=== PATIENT | female | born 1960 | race Caucasian/White ===

== ENCOUNTER → 2018-05-25 | Outpatient (CLI) | payer BC ==
[~2018-05-25] MED LIST: ALPR-475; ESTRODIOL; LORA-446 PO; PANT20TA2 PO; PROG100S; ZOLP10TA
== END | disposition home or self-care (01) ==
LOC: CFH 11:36
PROVIDERS: ATTEND Obstetrics & Gynecology
DX: Z12.31 Encounter for screening mammogram for malignant neoplasm of breast (principal)
CPT/HCPCS: 77067

== ENCOUNTER → 2018-10-17 | Outpatient (CLI) | payer BC | END | disposition home or self-care (01) | LOC: CFH 11:01 | PROVIDERS: ATTEND Allergy & Immunology | DX: J44.9 Chronic obstructive pulmonary disease, unspecified (principal) | CPT/HCPCS: 71046 ==

== ENCOUNTER 2019-06-19 19:14 | Inpatient (IN) | payer OTHER ==
[~2019-06-19] VITALS: Ht 162.6 cm; Wt 52.1 kg
[2019-06-21 13:27] VITALS: BP 132/83
== END 2019-06-21 15:40 | disposition home or self-care (01) | DRG 641 ==
LOC: ED 22:14 → EDIP 22:40 → 4WST 23:41 → DCLOUNGE 06-21 15:27
PROVIDERS: ADMIT Internal Medicine; ATTEND Internal Medicine
DX: E87.1 Hypo-osmolality and hyponatremia (principal); F41.9 Anxiety disorder, unspecified; I10 Essential (primary) hypertension; I16.0 Hypertensive urgency; I70.1 Atherosclerosis of renal artery; J45.909 Unspecified asthma, uncomplicated; Z79.899 Other long term (current) drug therapy; Z80.1 Family history of malignant neoplasm of trachea, bronchus and lung; Z88.8 Allergy status to other drugs, medicaments and biological substances; Z87.891 Personal history of nicotine dependence; Z90.710 Acquired absence of both cervix and uterus; R79.89 Other specified abnormal findings of blood chemistry; R00.0 Tachycardia, unspecified
CPT/HCPCS: 36415; 74176; 76856; 80053; 81003; 82533; 83735; 83930; 83935; 84295; 84439; 84443; 85025; 93975; 96361; 96374; 99291; G0378; J2270; J7030

== ENCOUNTER 2020-01-15 11:30 | Emergency (ER) | payer OTHER ==
[~2020-01-15] VITALS: Ht 162.6 cm; Wt 54.0 kg
[~2020-01-15 11:30] MED LIST changes: -ALPR-475; +ALPR0.5T7; +AMLO-150 PO
--- NOTE | 2020-01-15 11:55 | NUR ---
ASSUMED CARE OF PT AT THIS TIME FROM LOBBY VIA WHEELCHAIR. PT ABLE TO STAND AND AMBUALTE IN STEADY GAIT IN ROOM. 59 Y/O ANXIOUS FEMALE PRESENTS STATING "I WOKE UP FEELING NAUSEATED, THREW UP VERY LITTLE MAYBE 3 TIMES, LIGHTHEADED NOT REALLY DIZZY, FOGGY, JUST NOT FEELING WELL, I FEEL ANXIOUS AND STRESSED WAITING FOR ALL MY IMAGING RESULTS FROM YESTERDAY, THEY DID US ON MY ABD TO CHECK ALL MY STENTS, MY STOMACH HAS JUST BEEN SORE SINCE HAVING THEM." DENIES ANY ABD PAIN, CP, PAIN, SOB, TAM, DIZZINESS, DIARRHEA, FEVER, CHILLS. CONT PULSE OX, BP, CARDIAC MONITORS IN PLACE. ST ON MONITOR. VSS. A&OX4. SPOUSE AT BEDSIDE. FALL PRECAUTIONS IN PLACE. SIDE RAILS UPX2. CALL LIGHT IN REACH. DR. BROOKS AT BEDSIDE FOR EVALUATION, AWAITING ORDER. PER PT TO BE NPO IN ER, PT VERBALIZED UNDERSTANDING. ASSESSMENT COMPLETED.
[2020-01-15] MEDS ORDERED: SODIUM CHLORIDE 0.9% 1,000ML IVBOLUS ONE (12:00)
[2020-01-15] MEDS ORDERED: LORazepam 2 MG/ML, 1ML IVPush ONE (12:00)
[2020-01-15] MEDS ORDERED: SODIUM CHLORIDE FLUSH 10ML SYR IVF ONE (12:00)
[2020-01-15] MEDS ORDERED: ONDANSETRON 2MG/ML, 2ML IVPush ONE (12:00)
--- NOTE | 2020-01-15 12:11 | NUR ---
IV PLACED, LABS DRAWN. PT MEDICATED NOTED IN [facility] PER MD ORDER FOR ANXIETY AND WITH IVF. REFUSES ZOFRAN AT THIS TIME, "I'M NOT NAUSEATED AND NOT HAVING PAIN JUST ANXIOUS." VSS. ST ON MONITOR. CALL LIGHT IN REACH. FALL PRECAUTIONS IN PLACE. SPOUSE REMAINS AT BEDSIDE
[2020-01-15] MEDS ORDERED: LORazepam 2 MG/ML, 1ML ONE (12:13)
[2020-01-15 12:32] LABS: MD YES; MEAN CORPUSCULAR HEMOGLOBIN 29.1 pg (27.0-34.8); MEAN CORPUSCULAR VOLUME 88.1 fL (80-100); MEAN PLATELET VOLUME 9.6 fL (7.4-10.4); PLATELET COUNT 341 x10^3/uL (130-400); RED BLOOD COUNT 5.07 x10^6/uL (3.82-5.3); RED CELL DISTRIBUTION WIDTH 14.9 % (9.6-15.2)
[2020-01-15] MEDS ORDERED: RIVA20TA PO (12:35)
[2020-01-15 12:38] LABS: ALANINE AMINOTRANSFERASE 25 U/L (12-78); ALBUMIN 3.9 g/dL (3.4-5.0); ANION GAP 12 mmol/L (5-15); CHLORIDE 102 mmol/L (98-107); CREATININE 0.83 mg/dL (0.55-1.02)
[2020-01-15 12:43] LABS: ALKALINE PHOSPHATASE 84 U/L (45-117); BILIRUBIN,TOTAL 0.5 mg/dL (0.2-1.0); TOTAL PROTEIN 8.1 g/dL (6.4-8.2); TROPONIN I < 0.015 ng/mL (0.000-0.045)
[2020-01-15 12:57] LABS: BASOS#(MANUAL) 0.13 x10^3/uL (0-0.1); BASOS% (MANUAL) 1 % (0-1); LYMPH#(MANUAL) 1.75 x10^3/uL (1-3.4); LYMPHS% (MANUAL) 14 % (22-44); MONOS% (MANUAL) 4 % (2-9); SEG#(MANUAL) 10.13 x10^3/uL (1.8-6.8); SEGS% (MANUAL) 81 % (42-75)
[2020-01-15 12:59] LABS: <PLATELET ESTIMATE> ADEQUATE; <RBC MORPHOLOGY> NORMAL; LARGE PLATELETS 1+
--- NOTE | 2020-01-15 13:20 | NUR ---
PT REPORTS "FEELING SO MUCH BETTER, MORE RELAXED." ANXIETY RESOLVING. VSS. ST ON MONITOR. DENIES ANY PAIN AND NAUSEA. AMBULATED TO RESTROOM FOR CLEAN CATCH UA.
--- NOTE | 2020-01-15 13:25 | NUR ---
UA COLLECTED AND SENT TO LAB. PT RESTING COMFORTABLY. WARM BLANKETS PROVIDED PER REQUEST. VSS. SPOUSE AT BEDSIDE. CALL LIGHT IN REACH. FALL PRECAUTIONS IN PLACE.
[2020-01-15 13:48] LABS: MICROSCOPIC INDICATED
[2020-01-15 13:49] LABS: CULTURE INDICATED? YES
--- NOTE | 2020-01-15 13:52 | NUR ---
PT UP FOR RECHECK
[2020-01-15] MEDS ORDERED: CEFTRIAXONE PMX 1GM/50ML 50 ML IV ONE (14:00)
[2020-01-15] MEDS ORDERED: CEFTRIAXONE PMX 1GM/50ML 50 ML ONE (14:14)
--- NOTE | 2020-01-15 14:23 | NUR ---
DR. BROOKS AT BEDSIDE FOR RECHECK, DISCUSSING TEST RESULTS AND POC. IV ANTIBIOTIC INFUSING PER MD ORDER ON IV PUMP. NO BLOOD CULTURES PER DR. BROKOS TO BE DRAWN PRIOR TO ADMIN. VSS. ST ON MONITOR. CALL LIGHT IN REACH. FALL PRECUATIONS IN PLACE. SIDE RAILS UPX2. PT DENIES ANXIETY, "FEELING SO MUCH BETTER." SPOUSE AT BEDSIDE
--- NOTE | 2020-01-15 14:45 | NUR ---
PT REQUESTING DIFLUCAN, "I HAVE TO TAKE ONE ANY TIME I TAKE AN ANTIBIOTIC OR I WILL GET A YEAST INFECTION." DISCUSSED WITH ERP DR. LUCIA, ORDER RECEIVED.
[2020-01-15] MEDS ORDERED: FLUCONAZOLE 100 MG TABLET ONE (14:47)
--- NOTE | 2020-01-15 14:53 | NUR ---
PT MEDICATED NOTED IN [facility] PER REQUEST
[2020-01-15 14:58] VITALS: BP 118/76
[2020-01-15] MEDS ORDERED: FLUCONAZOLE 100 MG TABLET PO ONE (15:00)
== END 2020-01-15 15:12 | disposition home or self-care (01) ==
LOC: ED 14:45
DX: N30.00 Acute cystitis without hematuria (principal); R00.0 Tachycardia, unspecified; R42 Dizziness and giddiness; F41.1 Generalized anxiety disorder; I10 Essential (primary) hypertension; Z90.710 Acquired absence of both cervix and uterus; Z87.891 Personal history of nicotine dependence
CPT/HCPCS: 36415; 74022; 80053; 81001; 83605; 83690; 83735; 84484; 85025; 87077; 87086; 87186; 93005; 96361; 96365; 96375; 99285; J0696; J2060; J7030

== ENCOUNTER → 2020-04-08 | Outpatient (CLI) | payer OTHER ==
[~2020-04-08] MED LIST changes: +OMNIPAQUE 350 MG/ML, 100ML BOTTLE ONE; +RIVA20TA PO
[2020-04-08 13:05] LABS: CREATININE 0.75 mg/dL (0.55-1.02)
== END | disposition home or self-care (01) ==
LOC: RAD 12:28
PROVIDERS: ATTEND Physician Assistant
DX: K57.30 Diverticulosis of large intestine without perforation or abscess without bleeding (principal); I70.0 Atherosclerosis of aorta
CPT/HCPCS: 36415; 74177; 82565; 84520; Q9967